=== PATIENT | female | born 1980 | race Caucasian/White ===

== ENCOUNTER 2018-04-18 00:09 | Emergency (ER) | payer OTHER ==
[~2018-04-18] VITALS: Ht 160 cm; Wt 54.5 kg
[2018-04-18 00:11] VITALS: BP 134/73
== END 2018-04-18 01:16 | disposition left against medical advice (07) ==
LOC: ER 00:10
DX: R06.02 Shortness of breath (principal); R42 Dizziness and giddiness; R11.0 Nausea; Z53.21 Procedure and treatment not carried out due to patient leaving prior to being seen by health care provider
CPT/HCPCS: 93005; 99281

== ENCOUNTER 2019-03-25 02:53 | Emergency (ER) | payer MEDICAID, OTHER ==
[~2019-03-25] VITALS: Ht 160 cm; Wt 53.6 kg
[~2019-03-25 02:53] MED LIST: CEPH500C5 PO
[2019-03-25 04:12] VITALS: BP 121/86
[2019-03-25] MEDS ORDERED: cephalexin 500mg capsule PO ONE (05:00)
[2019-03-25] MEDS ORDERED: CEPH250T PO (05:00)
--- NOTE | 2019-03-25 05:10 | NUR ---
Per EDMD, abx not needed for this pt @ this time.
== END 2019-03-25 05:18 | disposition home or self-care (01) ==
LOC: ER 02:54
DX: S61.031A Puncture wound without foreign body of right thumb without damage to nail, initial encounter (principal); R19.7 Diarrhea, unspecified; F41.9 Anxiety disorder, unspecified; F17.200 Nicotine dependence, unspecified, uncomplicated; Z88.5 Allergy status to narcotic agent; Z88.8 Allergy status to other drugs, medicaments and biological substances; Z79.899 Other long term (current) drug therapy; W55.01XA Bitten by cat, initial encounter; Y93.89 Activity, other specified; Y92.89 Other specified places as the place of occurrence of the external cause; Y99.8 Other external cause status
CPT/HCPCS: 99283

== ENCOUNTER 2020-01-20 01:23 | Emergency (ER) | payer MEDICAID ==
[~2020-01-20] VITALS: Ht 157.5 cm; Wt 58.6 kg
[2020-01-20 02:12] LABS: GLUCOSE, URINE NEGATIVE (Neg); KETONES,URINE NEGATIVE (Neg); LEUKOCYTE ESTERASE ,URINE NEGATIVE (Neg); NITRITES, URINE POSITIVE (Neg); OCCULT BLOOD,URINE TRACE-INTACT (Neg); PROTEIN,URINE NEGATIVE (Neg); UROBILINOGEN,URINE 0.2 E.U/dL (0.2-1.0)
[2020-01-20 02:13] LABS: CLARITY,URINE SLIGHTLY CLOUDY (Clear); COLOR,URINE YELLOW (Yellow); UA COLLECTION TYPE CLN CATCH MIDSTREAM
[2020-01-20 02:14] LABS: URINE HCG NEGATIVE (NEG)
[2020-01-20 02:22] LABS: BACTERIA,URINE 4+ /HPF (Neg); MUCUS STRANDS MODERATE /LPF (Neg); RBC,URINE 0-2 /HPF (0-2); SQUAMOUS EPITHELIAL CELL,UR FEW /LPF (FEW); WBC,URINE 0-4 /HPF (0-4)
[2020-01-20] MEDS ORDERED: diazepam inj 5 MG/ML inj. IV ONE (02:25)
[2020-01-20 03:52] LABS: ALBUMIN 3.7 G/DL (3.4-5.0); ANION GAP 10 (8-16); BLOOD UREA NITROGEN 19 MG/DL (7-18); BUN/CREATININE RATIO 19.6 (6.6-38.0); CALCIUM 9.1 MG/DL (8.5-10.1); CHLORIDE 106 MMOL/L (99-107); CREATININE 0.97 MG/DL (0.40-0.90); GLUCOSE 85 MG/DL (70-104); SODIUM 142 MMOL/L (135-145); TOTAL CARBON DIOXIDE 26.3 MMOL/L (24-32); eGFR 64 ML/MIN
--- NOTE | 2020-01-20 03:53 | NUR ---
us at bedside. vss.
[2020-01-20] MEDS ORDERED: NITR100C6 PO (04:00)
[2020-01-20] MEDS ORDERED: ketorolac tromethamine 15mg/ml inj. IM ONE (04:35)
[2020-01-20 04:47] VITALS: BP 100/69
== END 2020-01-20 04:49 | disposition home or self-care (01) ==
LOC: ER 01:24
DX: M54.5 Low back pain (principal); N39.0 Urinary tract infection, site not specified; K59.00 Constipation, unspecified; F41.9 Anxiety disorder, unspecified; Z98.51 Tubal ligation status; Z88.5 Allergy status to narcotic agent; Z88.8 Allergy status to other drugs, medicaments and biological substances; Z79.899 Other long term (current) drug therapy
CPT/HCPCS: 36415; 76830; 76856; 80048; 81001; 81025; 93976; 96374; 99284; J3360

== ENCOUNTER 2020-05-03 14:02 | Emergency (ER) | payer MEDICAID ==
[~2020-05-03 14:02] MED LIST changes: -CEPH500C5 PO; +NITR100C6 PO
== END 2020-05-03 16:03 | disposition left against medical advice (07) ==
LOC: ER 14:03
DX: Z53.21 Procedure and treatment not carried out due to patient leaving prior to being seen by health care provider (principal)

== ENCOUNTER 2021-10-06 12:07 | Emergency (ER) | payer MEDICAID ==
[~2021-10-06] VITALS: Ht 160 cm; Wt 56.8 kg
[2021-10-06 12:37] LABS: BASOPHILS # (AUTO) 0.1 X10'3 (0-0.2); EOSINOPHILS # (AUTO) 0.2 X10'3 (0-0.9); EOSINOPHILS % (AUTO) 3.3 % (0-6); HEMOGLOBIN 14.4 g/dl (12.0-16.0); LYMPHOCYTES # (AUTO) 1.7 X10'3 (1.1-4.8); LYMPHOCYTES % (AUTO) 29.3 % (21-51); MEAN CORPUSCULAR HEMOGLOBIN 32.5 PG (27.0-31.0); MEAN CORPUSCULAR HGB CONC 33.5 g/dL (33.0-36.5); MEAN CORPUSCULAR VOLUME 97.2 FL (78-98); MONOCYTES # (AUTO) 0.5 X10'3 (0-0.9); MONOCYTES % (AUTO) 9.2 % (2-12); NEUTROPHILS # (AUTO) 3.3 X10'3 (1.8-7.7); NEUTROPHILS % (AUTO) 57.2 % (42-75); PLATELET COUNT 318 X10'3 (140-440); RED BLOOD COUNT 4.43 X10'6 (4.20-5.60); RED CELL DISTRIBUTION WIDTH 12.3 % (11.5-14.5); WHITE BLOOD COUNT 5.8 X10'3 (4.5-11.0)
[2021-10-06 12:52] LABS: CLARITY,URINE SLIGHTLY CLOUDY (Clear); COLOR,URINE YELLOW (Yellow); GLUCOSE, URINE NEGATIVE (Neg); KETONES,URINE NEGATIVE (Neg); LEUKOCYTE ESTERASE ,URINE NEGATIVE (Neg); NITRITES, URINE POSITIVE (Neg); OCCULT BLOOD,URINE NEGATIVE (Neg); PH,URINE 6.5 (4.8-8.0); PROTEIN,URINE NEGATIVE (Neg); URINE HCG NEGATIVE (NEG); UROBILINOGEN,URINE 0.2 E.U/dL (0.2-1.0)
[2021-10-06 12:53] LABS: ALANINE AMINOTRANSFERASE 24 U/L (12-78); ALBUMIN/GLOBULIN RATIO 1.3 (1.1-1.5); ALKALINE PHOSPHATASE 76 IU/L (46-116); ANION GAP 6 (8-16); ASPARTATE AMINO TRANSFERASE 19 U/L (10-37); BILIRUBIN,TOTAL 0.3 MG/DL (0.1-1.0); BLOOD UREA NITROGEN 18 MG/DL (7-18); BUN/CREATININE RATIO 17.1 (6.6-38.0); CALCIUM 9.2 MG/DL (8.5-10.1); CHLORIDE 103 MMOL/L (99-107); CREATININE 1.05 MG/DL (0.40-0.90); GLUCOSE 93 MG/DL (70-104); LIPASE 118 U/L (73-393); POTASSIUM 3.6 MMOL/L (3.5-5.1); SODIUM 139 MMOL/L (135-145); TOTAL CARBON DIOXIDE 30.2 MMOL/L (24-32); eGFR 58 ML/MIN
[2021-10-06 12:55] LABS: UA COLLECTION TYPE CLN CATCH MIDSTREAM
[2021-10-06 13:02] LABS: MUCUS STRANDS FEW /LPF (Neg)
[2021-10-06 13:04] LABS: RBC,URINE NONE SEEN /HPF (0-2); WBC,URINE 0-4 /HPF (0-4)
[2021-10-06 13:05] LABS: FINE GRANULAR CAST 0-3 /LPF (NEGATIVE); HYALINE CASTS 0-3 /LPF (NEGATIVE)
[2021-10-06 13:07] LABS: SQUAMOUS EPITHELIAL CELL,UR MODERATE /LPF (FEW)
[2021-10-06 13:08] LABS: BACTERIA,URINE 3+ /HPF (Neg)
[2021-10-06 14:33] VITALS: BP 111/73
--- NOTE | 2021-10-09 11:46 | NUR ---
PT CALLED REGARDING LAB RESULTS FROM HER VISIT ON 10/06/21. PT WAS INFORMED THAT SHE HAS A UTI AND THAT ABX WILL BE CALLED IN FOR HER. PT STATES THAT SHE CONTINUES TO FEEL UNWELL. PT REQUESTED THAT HER RX BE CALLED INTO [facility] IN [place]. KEFLEX 500MG PO TID x3 DAYS; #9 WAS CALLED TO [facility] IN [place] REQUESTED
== END 2021-10-06 14:36 | disposition home or self-care (01) ==
LOC: ER 12:07
DX: M62.08 Separation of muscle (nontraumatic), other site (principal); F41.9 Anxiety disorder, unspecified; F17.200 Nicotine dependence, unspecified, uncomplicated; Z98.51 Tubal ligation status; Z88.5 Allergy status to narcotic agent; Z88.8 Allergy status to other drugs, medicaments and biological substances; Z79.899 Other long term (current) drug therapy
CPT/HCPCS: 36415; 80053; 81001; 81025; 83690; 85025; 87077; 87088; 87186; 99283

== ENCOUNTER → 2022-06-07 | Emergency (ER) | payer MEDICAID ==
[~2022-06-07] VITALS: Ht 160 cm; Wt 58.6 kg
[~2022-06-07] MED LIST changes: +DOXY-1 PO; +DOXYCYCLINE 100MG CAPSULE PO STA; +METR-159 PO; +metroNIDAZOLE 500mg tablet PO ONE; +ondansetron 4mg rapidly disintigrating tab PO ONE
[2022-06-07 14:09] VITALS: BP 108/71
[2022-06-07 16:24] LABS: CLARITY,URINE CLOUDY (Clear); COLOR,URINE YELLOW (Yellow); GLUCOSE, URINE NEGATIVE (Neg); KETONES,URINE NEGATIVE (Neg); LEUKOCYTE ESTERASE ,URINE MODERATE (Neg); NITRITES, URINE POSITIVE (Neg); OCCULT BLOOD,URINE TRACE-INTACT (Neg); PROTEIN,URINE TRACE mg/dl (Neg); URINE HCG NEGATIVE (NEG)
--- NOTE | 2022-06-07 16:29 | NUR ---
Vaginal exam chaperoned by eulalio BARBOSA.
[2022-06-07 16:31] LABS: UA COLLECTION TYPE CLN CATCH MIDSTREAM
[2022-06-07 16:33] LABS: BACTERIA,URINE 3+ /HPF (Neg); RBC,URINE 0-2 /HPF (0-2); SQUAMOUS EPITHELIAL CELL,UR MANY /LPF (FEW)
[2022-06-07 16:34] LABS: MUCUS STRANDS FEW /LPF (Neg)
== END | disposition home or self-care (01) ==
LOC: ER 13:54
DX: N39.0 Urinary tract infection, site not specified (principal); R31.9 Hematuria, unspecified; A64 Unspecified sexually transmitted disease; R11.0 Nausea; Z88.5 Allergy status to narcotic agent; Z88.8 Allergy status to other drugs, medicaments and biological substances; Z98.51 Tubal ligation status
CPT/HCPCS: 81001; 81025; 87210; 99284

== ENCOUNTER 2022-09-01 08:19 | Emergency (ER) | payer MEDICAID ==
[~2022-09-01] VITALS: Ht 160 cm; Wt 56.8 kg
[~2022-09-01 08:19] MED LIST changes: -DOXY-1 PO; -DOXYCYCLINE 100MG CAPSULE PO STA; -METR-159 PO; -metroNIDAZOLE 500mg tablet PO ONE; -ondansetron 4mg rapidly disintigrating tab PO ONE
[2022-09-01] MEDS: proCHLORperazine 10 MG/2 ml inj IM ONE ×2 (08:50→09:22)
--- NOTE | 2022-09-01 08:55 | NUR ---
PT GETTING EKG AT THIS TIME.
[2022-09-01 09:03] LABS: BASOPHILS % (AUTO) 0.8 % (0-1); EOSINOPHILS # (AUTO) 0.2 X10'3 (0-0.9); EOSINOPHILS % (AUTO) 2.7 % (0-6); HEMATOCRIT 39.6 % (35.0-45.0); HEMOGLOBIN 13.5 g/dl (12.0-16.0); LYMPHOCYTES # (AUTO) 1.6 X10'3 (1.1-4.8); LYMPHOCYTES % (AUTO) 26.2 % (21-51); MEAN CORPUSCULAR HEMOGLOBIN 32.8 PG (27.0-31.0); MEAN CORPUSCULAR HGB CONC 34.1 g/dL (33.0-36.5); MEAN CORPUSCULAR VOLUME 96.1 FL (78-98); MONOCYTES # (AUTO) 0.4 X10'3 (0-0.9); MONOCYTES % (AUTO) 7.1 % (2-12); NEUTROPHILS # (AUTO) 3.8 X10'3 (1.8-7.7); NEUTROPHILS % (AUTO) 63.2 % (42-75); PLATELET COUNT 306 X10'3 (140-440); RED BLOOD COUNT 4.12 X10'6 (4.20-5.60); RED CELL DISTRIBUTION WIDTH 12.8 % (11.5-14.5)
--- NOTE | 2022-09-01 09:07 | NUR ---
PT TAKEN TO XRAY
[2022-09-01 09:17] LABS: ALANINE AMINOTRANSFERASE 24 U/L (12-78); ALBUMIN 3.6 G/DL (3.4-5.0); ALBUMIN/GLOBULIN RATIO 1.3 (1.1-1.5); ALKALINE PHOSPHATASE 93 IU/L (46-116); ANION GAP 5 (8-16); ASPARTATE AMINO TRANSFERASE 16 U/L (10-37); BILIRUBIN,TOTAL 0.3 MG/DL (0.1-1.0); BLOOD UREA NITROGEN 23 MG/DL (7-18); BUN/CREATININE RATIO 27.1 (10.0-20.0); CHLORIDE 105 MMOL/L (99-107); CREATININE 0.85 MG/DL (0.40-0.90); GLUCOSE 99 MG/DL (70-104); POTASSIUM 3.7 MMOL/L (3.5-5.1); SODIUM 141 MMOL/L (135-145); TOTAL CARBON DIOXIDE 30.8 MMOL/L (24-32); TOTAL PROTEIN 6.3 G/DL (6.4-8.2); eGFR 74 ML/MIN
--- NOTE | 2022-09-01 10:04 | NUR ---
PT REQ GABBI BEFORE DC. RN WILL REQ FROM DR JENSEN.
[2022-09-01] MEDS ORDERED: ondansetron 4mg rapidly disintigrating tab PO ONE (10:15)
--- NOTE | 2022-09-01 10:15 | NUR ---
per dr igor gross august ord and admin 4 mg zofran tablet
[2022-09-01 10:22] VITALS: BP 102/66
== END 2022-09-01 10:40 | disposition home or self-care (01) ==
LOC: ER 08:20
DX: R42 Dizziness and giddiness (principal); G43.909 Migraine, unspecified, not intractable, without status migrainosus; Z88.5 Allergy status to narcotic agent; Z88.8 Allergy status to other drugs, medicaments and biological substances; Z98.51 Tubal ligation status
CPT/HCPCS: 36415; 70450; 71045; 80053; 85025; 93005; 99285; J7030

== ENCOUNTER 2023-02-13 23:11 | Emergency (ER) | payer MEDICAID ==
[~2023-02-13] VITALS: Ht 160 cm; Wt 58.6 kg
[2023-02-13 23:52] VITALS: TEMP 98.9
[2023-02-14] MEDS ORDERED: TETanus/Pertussis (Acell)/Diphther VAC/PF (Tdap-Adult) 0.5ml syringe IMVAC ONE (00:30)
[2023-02-14] MEDS ORDERED: AMOX-117 PO (00:59)
[2023-02-14 01:43] VITALS: BP 112/82; PULSE 79; RESP 12; O2SAT 98
== END 2023-02-14 01:30 | disposition home or self-care (01) ==
LOC: ER 23:12
DX: M79.601 Pain in right arm (principal)
CPT/HCPCS: 90471; 90715; 99283